=== PATIENT | female | born 1990 | race Two or more races ===

== ENCOUNTER 2022-04-05 22:54 | Emergency (ER) | payer SELFPAY ==
[~2022-04-05] VITALS: Ht 175.3 cm; Wt 90.7 kg
[2022-04-06] MEDS ORDERED: IBUPROFEN 800 MG TAB PO ONE (01:30)
[2022-04-06] MEDS ORDERED: IBUP800T27 PO (07:58)
[2022-04-06] MEDS ORDERED: HYDROcodone-ACET 5/325MG TAB PO ONE (08:00)
[2022-04-06 08:12] VITALS: BP 130/89
== END 2022-04-06 08:20 | disposition home or self-care (01) ==
LOC: ER 22:54
DX: S52.532A Colles' fracture of left radius, initial encounter for closed fracture (principal); W19.XXXA Unspecified fall, initial encounter; Y93.89 Activity, other specified; Y92.89 Other specified places as the place of occurrence of the external cause; Y99.8 Other external cause status
CPT/HCPCS: 29125; 73110